=== PATIENT | male | born 1960 | race Caucasian/White ===

== ENCOUNTER 2016-10-14 08:11 | Emergency (ER) | payer OTHER ==
[2016-10-14 08:16] VITALS: RESP 16; TEMP 98.1
--- NOTE | 2016-10-14 09:23 | EDPHY ---
HPI/HX/ROS/PE/MDM Narrative: Chief complaint: Left back pain HPI: 56-year-old male woke this morning with severe left back pain. Does not have a history of same. He is unable to find a position of comfort. States in his left flank and radiates into his left groin. He does state however it is worse when he flexes his thigh. He did changes workout yesterday was not had any pain like this before. Took 3 Aleve without any relief. No numbness or tingling. No difficulty urinating or having a bowel movement. No fevers or chills. He also states that he has intact 2 were done in late on his left side last night but he was up and walking around frequently during this. Has not noted any discoloration of his urine. No burning with urination. ROS: 10 point Review of Systems is negative except as noted in the HPI. Physical exam: Gen: Awake, Alert, No Distress HEENT: Nose: no rhinorrhea Eyes: PERRLA, EOMI Mouth: Moist mucosa Neck: Supple, no JVD Chest: nontender, lungs clear to auscultation Heart: S1, S2 normal, no murmur Abd: Soft, non-tender, no guarding Back: no CVA tenderness, no midline tenderness , no reproducible soft tissue muscle spasm or tenderness. Ext: no edema, non-tender Skin: no rash Neuro: CN II-XII intact, Sensation grossly intact, Strength 5/5 in bilateral upper and lower extremities ED Course: 56-year-old male with left back pain which has features of both musculoskeletal and renal colic. His urine dip here is negative. However he is unable to find a position of comfort. His left flank pain does radiate to his groin. He certainly could have a renal calculus with out hematuria. Given his symptomatology in no history of back problems in the past I am going to get a CT scan of his abdomen and pelvis to evaluate for renal calculi A CT scan of the abdomen pelvis is negative for kidney stone or any other intra- abdominal abnormality per Dr. Pizano. Patient is feeling much better after the morphine and Valium. Will discharge with continuing nonsteroidals and some Percocet. Will refer him to a local primary care physician. He will return for any worsening of symptoms or any concerning symptoms. - Data Points Laboratory Results: Laboratory Results 10/14/16 09:25 10/14/16 09:25 10/14/16 09:25 WBC 6.88 10^3/uL (3.80-9.50) RBC 5.20 10^6/uL (4.40-6.38) Hgb 16.9 g/dL (13.7-17.5) Hct 48.6 % (40.0-51.0) MCV 93.5 fL (81.5-99.8) MCH 32.5 pg (27.9-34.1) MCHC 34.8 g/dL (32.4-36.7) RDW 13.0 % (11.5-15.2) Plt Count 181 10^3/uL (150-400) MPV 10.6 fL (8.7-11.7) Neut % (Auto) 82.1 H % (39.3-74.2) Lymph % (Auto) 10.0 L % (15.0-45.0) [place] % (Auto) 6.8 % (4.5-13.0) Eos % (Auto) 0.1 L % (0.6-7.6) Baso % (Auto) 0.4 % (0.3-1.7) Nucleat RBC Rel Count 0.0 % (0.0-0.2) Absolute Neuts (auto) 5.64 10^3/uL (1.70-6.50) Absolute Lymphs (auto) 0.69 L 10^3/uL (1.00-3.00) Absolute Monos (auto) 0.47 10^3/uL (0.30-0.80) Absolute Eos (auto) 0.01 L 10^3/uL (0.03-0.40) Absolute Basos (auto) 0.03 10^3/uL (0.02-0.10) Absolute Nucleated RBC 0.00 10^3/uL (0-0.01) Immature Gran % 0.6 % (0.0-1.1) Immature Gran # 0.04 10^3/uL (0.00-0.10) Sodium 142 mEq/L (134-144) Potassium 4.1 mEq/L (3.5-5.2) Chloride 104 mEq/L (97-110) Carbon Dioxide 25 mEq/l (22-31) Anion Gap 13 mEq/L (8-16) BUN 22 mg/dL (7-23) Creatinine 1.0 mg/dL (0.7-1.3) Estimated GFR > 60 Glucose 113 H mg/dL (70-100) Calcium 9.4 mg/dL (8.5-10.4) Medications Given: Discontinued Medications Diazepam (Valium Injection) 5 mg IVP EDNOW ONE Stop: 10/14/16 09:28 Last Admin: 10/14/16 09:35 Dose: 5 mg Morphine Sulfate (Morphine) 6 mg IVP ONCE ONE Stop: 10/14/16 09:28 Last Admin: 10/14/16 09:35 Dose: 6 mg General Time Seen by Provider: 10/14/16 09:07 Initial Vital Signs: Initial Vital Signs Temperature (C) 36.7 C 10/14/16 08:12 Heart Rate 62 10/14/16 08:12 Respiratory Rate 16 10/14/16 08:12 Blood Pressure 142/93 H 10/14/16 08:12 O2 Sat (%) 97 10/14/16 08:12 O2 Delivery Mode Nasal Cannula O2 (L/minute) 2 Allergies/Adverse Reactions: No Known Allergies Allergy (Unverified 10/14/16 08:18) Home Medications: Medication Instructions Recorded oxyCODONE/APAP 5/325 [Percocet 1 - 2 tab PO Q4H PRN #10 tab 10/14/16 5/325 (*)] Departure - Departure Disposition: Home, Routine, Self-Care Clinical Impression: Strain of lumbar region Condition: Good Instructions: Low Back Strain (ED), Lower Back Exercises (ED) Additional Instructions: Take ibuprofen around the clock for back pain. You may take Percocet for any breakthrough pain. The certain to remain mildly active and do not way still or rest your back. Follow up with primary care doc in 4-5 days if symptoms are not improving. Return emergency department for numbness or weakness in her legs, difficulty urinating or having a bowel movement, uncontrolled pain, fevers chills or any other concerns. Referrals: [place],. [Primary Care Provider] - As per Instructions Jaylin Lazo MD [Medical Doctor] - As per Instructions Prescriptions: oxyCODONE/APAP 5/325 [Percocet 5/325 (*)] 1 - 2 tab PO Q4H PRN #10 tab PRN Reason: Pain, Severe
[2016-10-14] MEDS ORDERED: DIAZEPAM 10 MG/2 ML SYR IVP ONE (09:27)
[2016-10-14 09:40] LABS: % IMMATURE GRANULYOCYTES 0.6 % (0.0-1.1); ABSOLUTE IMMATURE GRANULOCYTES 0.04 10^3/uL (0.00-0.10); ADD DIFF? NO; ADD MORPH? NO; ADD SCAN? NO; ATYPICAL LYMPHOCYTE FLAG 0 (0-99); FRAGMENT RBC FLAG 0 (0-99); HEMATOCRIT 48.6 % (40.0-51.0); HEMOGLOBIN 16.9 g/dL (13.7-17.5); LEFT SHIFT FLG 0 (0-99); LIPEMIA HEMOLYSIS FLAG 90 (0-99); MEAN CELL HEMOGLOBIN 32.5 pg (27.9-34.1); MEAN CELL HEMOGLOBIN CONCENTR. 34.8 g/dL (32.4-36.7); MEAN CELL VOLUME 93.5 fL (81.5-99.8); MEAN PLATELET VOLUME 10.6 fL (8.7-11.7); PLATELET CLUMPS FLAG 0 (0-99); PLATELET COUNT 181 10^3/uL (150-400)
[2016-10-14 10:14] LABS: ANION GAP 13 mEq/L (8-16); CALCIUM 9.4 mg/dL (8.5-10.4); CARBON DIOXIDE 25 mEq/l (22-31); CHLORIDE 104 mEq/L (97-110); GLOMERULAR FILTRATION RATE > 60; GLUCOSE 113 mg/dL (70-100); POTASSIUM 4.1 mEq/L (3.5-5.2); SODIUM 142 mEq/L (134-144)
--- NOTE | 2016-10-14 10:43 | CT ---
CT Abdomen and Pelvis Unenhanced (Renal Stone Protocol) Indication: Left groin and flank pain. Comparison: None available. Technique: Axial unenhanced CT imaging was performed through the abdomen and pelvis without contrast . Dose reduction techniques were utilized. Findings: Abdomen: The lung bases are clear. Eventration of the right hemidiaphragm is noted. Tiny hypodensities in the visible portions of the liver are too small to characterize. The gallbladde r, pancreas, and adrenals have a normal unenhanced appearance. The spleen is enlarged, measuring 14.3 cm. The kidneys have a normal unenhanced appearance. No renal or ureteral stones are identified. Moderate stool is present in the proximal colon. The colon and small bowel are normal caliber. The ap pendix is normal. There is no free fluid or air. Prior ventral hernia repair is noted with no recurre nt hernia identified. The aorta is normal caliber. Mild anterior height reduction of T11-L1 is noted. Degenerative change is present in the spine. Pelvis: No bladder or distal ureteral calcifications are identified. Lucency in the femoral neck co mpatible with previous screw fixation is noted. Impression: 1. No visible etiology for the patient's symptoms. 2. Splenomegaly. 3. Additional findings as above. Findings discussed with Willard Carter answering for Roberto Sheffield today at 1038 hours. Attention: This CT examination is specifically designed to evaluate patients who are clinically susp ected of having acute obstructive uropathy. This examination does not use radiographic contrast, and as such, provides only a limited evaluation of the abdomen, pelvis and retroperitoneum. If there i s further clinical suspicion for pathological conditions other than obstructive uropathy, a complete CT evaluation of the abdomen and pelvis utilizing intravenous, oral, and rectal contrast should be co nsidered.
[2016-10-14 11:46] VITALS: BP 142/96; PULSE 68; O2SAT 94
== END 2016-10-14 11:46 | disposition home or self-care (01) ==
DX: S39.012A Strain of muscle, fascia and tendon of lower back, initial encounter (principal); X58.XXXA Exposure to other specified factors, initial encounter
CPT/HCPCS: 96374